=== PATIENT | female | born 1965 | race Caucasian/White ===

== ENCOUNTER 2018-10-20 23:42 | Emergency (ER) | payer SELFPAY ==
[~2018-10-20] VITALS: Ht 152.4 cm; Wt 71.4 kg
[~2018-10-20 23:42] MED LIST: HYDR-842 PO; PANT40TA3 PO
[2018-10-20 23:44] VITALS: Ht 152.4 cm; Wt 71.4 kg
[2018-10-21] MEDS ORDERED: LORAZEPAM 0.5 MG TAB PO ONE
[2018-10-21 02:36] VITALS: BP 110/66; PULSE 64; RESP 18
== END 2018-10-21 02:37 | disposition home or self-care (01) ==
LOC: E/R 23:42
DX: F41.9 Anxiety disorder, unspecified (principal)
CPT/HCPCS: 36415; 80053; 81003; 83690; 84484; 85025; 93005